=== PATIENT | male | born 1960 | race Caucasian/White ===

== ENCOUNTER 2016-09-08 16:37 | Inpatient (IN) | payer OTHER, SELFPAY ==
--- NOTE | ~2016-09-08 | DS ---
Discharge Summary [facility] [address] [place]. [address] NAME: KATE BROWN : 58 STATUS : DIS Nallely PAT#: [id number] AGE: 56 ADM/REG DATE : 09/08/16 MR#: [id number] REPORT SERV DATE: 09/16/16 DICTATED BY: SHA MONSALVE DATE: 09/15/16 REPORT STATUS : Draft TRANSCRIBED BY: MODL DATE: 09/15/16 ADMISSION DATE: 09/08/2016 DISCHARGE DATE: 09/15/2016 DISCHARGE DIAGNOSES: 1. Ulcerative colitis with flare of proctitis. 2. History of ulcerative colitis. 3. Chronic left-sided hydronephrosis without change from baseline. INVASIVE PROCEDURES DURING THIS HOSPITALIZATION: Please refer to interim summary dictated by Dr. Montero on 09/12/2016. CONSULTING PHYSICIANS: Dr. Peter Rivera of Gastroenterology. BRIEF HISTORY OF PRESENT ILLNESS: The patient is a 56-year-old male who presented to the emergency room with bright red blood per rectum, so he was admitted. For detailed history and physical exam, please see note dictated by Dr. Alexander Ugarte on 09/09/2016. HOSPITAL COURSE: After being admitted to the hospital, this patient was cared for by Dr. Dez Montero. Please refer to interim summary dictated by Dr. Montero on 09/12/2016. I took over this patient's care on 09/13/2016. This patient was doing well from a medical standpoint, but he continued to have some blood. GI had continued to follow and was placed on Rowasa enemas to treat his ulcerative colitis. This patient's H and H have remained stable, as a matter of fact, today, it is 13 and 40. He is doing well. He is tolerating a diet. He is fully ambulatory. He is not having any pain. GI has recommended that he could be discharged home with Canasa suppositories like he normally does and follow up in the outpatient setting. This was discussed with the patient, and at this time, he is being discharged in stable condition. DISCHARGE DISPOSITION: Home. DISCHARGE ACTIVITY: As tolerated. DISCHARGE DIET: GI soft. DISCHARGE MEDICATIONS: Levsin 0.125 mg 1 a.c. and h.s.; prednisone 40 mg taper; Zofran 4 mg one tablet every six hours p.r.n. for nausea; Percocet 5/325 one tablet every six hours p.r.n., #30, with no refills have been given by GI; mercaptopurine 50 mg once every morning; Canasa 1000 mg suppository at bedtime; Ativan 1 mg twice daily p.r.n. for anxiety; multivitamins one tablet daily; vitamin D 500 mg daily; and Biotin for hard nails as directed. DISCHARGE FOLLOWUP: With Dr. Peter Rivera as scheduled by GI. With Dr. Dez Sarmiento as needed. More than 30 minutes spent planning this patient's discharge, reconciling medications, Discharge Summary [address] [address] NAME: KATE BROWN : 58 STATUS : DIS Nallely PAT#: [id number] AGE: 56 ADM/REG DATE : 09/08/16 MR#: [id number] REPORT SERV DATE: 09/16/16 DICTATED BY: SHA MONSALVE DATE: 09/15/16 REPORT STATUS : Draft TRANSCRIBED BY: RULA DATE: 09/15/16 writing prescriptions, discussing hospital care, and follow up with the patient and documenting this discharge. LILA/RULA Sha Monsalve M.D. / [id number] CC: Zackery Holloway M.D. Donald Hetzel, M.D. William John Fritsch, Jr, MD
--- NOTE | ~2016-09-08 | IDS ---
Interim Discharge Summary [facility] [address] [place] [address] NAME: KATE BROWN : 58 STATUS : ADM Nallely PAT#: [id number] AGE: 55 ADM/REG DATE : 09/08/16 MR#: [id number] REPORT SERV DATE: 09/12/16 DICTATED BY: JR. MONTERO WILLIAM JOHN DATE: 09/12/16 REPORT STATUS : Draft TRANSCRIBED BY: MODStarr DATE: 09/12/16 ADMISSION DATE: 09/08/2016 DISCHARGE DATE: This summary covers the time period from 09/08 through 09/12. WORKING DIAGNOSES: 1. Ulcerative colitis flare with proctitis. 2. History of ulcerative colitis. 3. Chronic left-sided hydronephrosis without change from baseline. OPERATIONS, PROCEDURES, AND TREATMENTS: Include CT of the abdomen and pelvis done 09/09/2016, which showed wall thickening involving the mid and distal colon as well as the rectum and surrounding pericolonic/perirectal area with inflammatory stranding at these levels. This is compatible with colitis/proctitis. There was no evidence of abscess or perforation. There was no bowel obstruction. There was moderate left hydronephrosis, compatible with chronic left UPJ obstruction. CONSULTING PHYSICIANS: Include Dr. Rivera of Gastroenterology. CURRENT MEDICATIONS: Please see the daily progress note. HOSPITAL COURSE: Briefly, the patient is a 55-year-old male, who presented to the emergency room on 09/08 with bright red blood per rectum. The patient has a long history of ulcerative colitis and proctitis. He was Hemoccult positive with stable hemoglobin and hematocrit. On exam, his initial temperature was 99.2, heart rate was 95, respiratory rate 20, blood pressure 141/102. Abdominal exam was soft, nontender and bowel sounds are present. Lab was unremarkable. The patient was admitted to the hospital on 24-hour telemetry, and Gastroenterology was consulted. Bowel rest and IV fluids were instituted. The patient was seen by Dr. Rivera and was placed on IV Levaquin and Flagyl initially with mesalamine and IV steroids as well as bowel rest. Diet was slowly reintroduced, and the patient is currently tolerating a full liquid diet. He continued to have bloody diarrhea, the mesalamine was discontinued, and he was placed on Rowasa enemas. The patient will continue on this regimen with further management per Gastroenterology. The patient will be followed by Dr. Monsalve. WJF/RULA Dez Montero Jr, MD / [id number] Interim Discharge Summary [address] [address] NAME: KATE BROWN : 58 STATUS : ADM Nallely PAT#: [id number] AGE: 55 ADM/REG DATE : 09/08/16 MR#: [id number] REPORT SERV DATE: 09/12/16 DICTATED BY: JR. MONTERO WILLIAM JOHN DATE: 09/12/16 REPORT STATUS : Draft TRANSCRIBED BY: RULA DATE: 09/12/16 CC: Dez Montero Jr, MD William Cornwell, M.D.
--- NOTE | ~2016-09-08 | HP ---
History And Physical [place] [id number] [facility] [place]. [address] NAME: KATE BROWN : 58 STATUS : ADM IN PAT#: [id number] AGE: 55 ADM/REG DATE : 09/08/16 MR#: [id number] REPORT SERV DATE: 09/09/16 DICTATED BY: ALEXANDER RAMSEY DATE: 09/09/16 REPORT STATUS : Draft TRANSCRIBED BY: MODL DATE: 09/09/16 DATE OF ADMISSION: 09/08/2016 CHIEF COMPLAINT: Bright red blood per rectum. HISTORY OF PRESENT ILLNESS: This is a 55-year-old male, who presents to the emergency room at [facility] with the above-mentioned complaint. History is obtained from the patient and reviewing data available on the [employer] system. According to Mr. Brown, he first noticed some bleeding from his rectum about two weeks ago. He has a history of proctitis and is a patient of Dr. Rivera and thought it would just subside. Unfortunately, it continued to get worse. He started having about 20 bowel movements a day, which was sometimes mostly just blood. Today, he started feeling quite dizzy and called Dr. Rivera's office for some advice and was immediately asked to go to the emergency room right away. Mr. Brown reports that he had also started having pain in his lower abdomen, which comes on when he has any bump or when his car goes over a bump or something like that. At rest, the pain is not very noticeable. In the emergency room, indeed he had bright red blood per rectum, which was stool Hemoccult positive. However, his hemoglobin and hematocrit levels were stable. Hospitalist Service is asked to admit him for further evaluation and treatment. At the time of my evaluation, he denied any chest pain or palpitations. He had no orthopnea. He had no cough, hemoptysis, night sweats, or weight loss. He has not had any recent falls or loss of consciousness. No history of fevers or chills at home. He denied any nausea or vomiting. No history of hematemesis or hematuria. No other history of recent travel or exposures. PAST MEDICAL HISTORY: Significant for history of proctitis and ulcerative colitis. SOCIAL HISTORY: He does not smoke, drink, or use recreational drugs, but did admit to using marijuana occasionally. 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 FAMILY HISTORY: Noncontributory. MEDICATIONS: His medications at home were reviewed by me in the chart today and reordered by me. REVIEW OF SYSTEMS: As in history of present illness. All other systems were reviewed in detail and are quite unremarkable. PHYSICAL EXAMINATION: GENERAL: This is a pleasant 55-year-old, not in any acute distress. HEENT: His head is atraumatic, normocephalic. He is alert, awake, and oriented to time, place, and person. Pupils are equal, reacting to light and accommodating. External ocular History And Physical [address] [place]. [address] NAME: KATE BROWN : 58 STATUS : ADM IN [facility]#: [id number] AGE: 55 ADM/REG DATE : 09/08/16 MR#: [id number] REPORT SERV DATE: 09/09/16 DICTATED BY: ALEXANDER RAMSEY DATE: 09/09/16 REPORT STATUS : Draft TRANSCRIBED BY: RULA DATE: 09/09/16 muscles are intact. Membranes are moist and pink. Sclerae are nonicteric. NECK: Supple with no jugular venous distention, lymphadenopathy, or thyromegaly. LUNGS: Clear to auscultation with no wheezes, rubs, or crackles. HEART: Heart sounds were regular with no murmurs, rubs, or gallops. ABDOMEN: Soft, nontender. Bowel sounds are present. EXTREMITIES: Showed no cyanosis, clubbing, or edema. NEURO: Grossly intact. No focal sensory or motor deficits. Higher functions appeared intact. Gait was not examined. VITAL SIGNS: His vital signs today showed a temperature of 99.2, pulse was 95, respirations were 20 a minute, and blood pressure upon arrival was 141/102. Oxygen saturations upon arrival were 99% breathing 2 L of oxygen via nasal cannula. LABORATORY DATA: Reviewed on the [employer] system showed a normal CMP. Alkaline phosphatase, ALT, and AST were within normal limits. [place] [address]. Normal hemoglobin, hematocrit, and platelet count. No imaging was performed in the ER today. No EKG was performed in the ER. IMPRESSION: 1. Bright red blood per rectum. 2. Acute gastrointestinal bleed. 3. Proctitis. 4. Ulcerative colitis. PLAN: We will admit Mr. Brown to the Hospitalist Service with telemetry for a 24-hour observation period. We will keep him n.p.o.; consult Dr. Rivera, who I called and spoke with today. Dr. Rivera wanted stool studies including for clostridium difficile. We will follow serial H and H; type, cross, and transfuse if needed. Meanwhile, we will also place him on SCDs for DVT prophylaxis. I have discussed the above plans with the patient, his questions were answered, and he is agreeable to the above recommendations. Further recommendations will follow after Dr. Rivera has had a chance to see him. Hospitalist Service will be following him during his stay here. /RULA Alexander Ramsey M.D. / [id number] CC: Zackery Ffoana M.D.
--- NOTE | ~2016-09-08 | CN ---
Consultation Report [facility] [address] [place]. [address] NAME: KATE BROWN : 58 STATUS : ADM Nallely PAT#: [id number] AGE: 55 ADM/REG DATE : 09/08/16 MR#: [id number] REPORT SERV DATE: 09/09/16 DICTATED BY: KAT BLISS DATE: 09/09/16 REPORT STATUS : Draft TRANSCRIBED BY: MODL DATE: 09/09/16 GI CONSULTATION DATE OF CONSULTATION: 09/09/2016 REASON FOR CONSULTATION: Evaluation and management of abdominal pain, lower GI bleeding. HISTORY OF PRESENT ILLNESS: Mr. Brown is a 55-year-old male patient who is known to Dr. Peter Rivera in the outpatient setting, who presented on the with a chief complaint of abdominal pain, lower GI bleeding. He did call our office yesterday and discussed with the nurse, Theresa, his symptoms. She tried to offer him an office visit as well as to come in and submit stool studies; however, the patient complained to her that his abdominal pain was the worst he had ever experienced, and most likely he would come to the emergency room for further evaluation. It appears that Dr. Ugarte did speak to Dr. Rivera when the patient was in the emergency room. Decision was made to admit the patient for further evaluation. He does have a history of ulcerative colitis. His last colonoscopy with Dr. Rivera, 07/11/2016, normal terminal ilium, normal mucosa in the sigmoid, descending, ascending, and transverse colon. He had moderate proctitis in the rectum with biopsies being taken and showed mild active proctitis. His other biopsies were within normal limits. On 08/05, he came in for an office visit. He complained of passing some blood intermittently in his stools. However, he was not having the symptoms that he expressed on admission. He tells me that he has been having lower abdominal discomfort for several months now which has progressively worsened over the past three to four days. His bowel movements have been nothing, but blood. He states he is going upwards to 20 times a day. He has had some chilling, but no documented fevers. He has had nausea, but no vomiting. He states that his weight is stable and he has still been able to eat. No abdominal imaging has been obtained. He had C. diff negative. White blood cells in his stool were greater than 100 per high-power field. Giardia and Cryptosporidium were negative. His hemoglobin was 14.3 on admission; presently it is 13.7. He had an elevated white blood cell count at 11.3. He has been afebrile since admission. I have discussed with him we will start him on steroids. We will obtain a CT scan, start him on some antibiotics, and complete his stool studies. He is agreeable. PAST MEDICAL HISTORY: Positive for proctitis, ulcerative colitis, kidney stones, osteoarthritis, hernias, history of left UPJ obstruction requiring ureteral stent placement. SURGICAL HISTORY: Shoulder surgery and ureteral stent placement. FAMILY HISTORY: Noncontributory from a GI standpoint. SOCIAL HISTORY: He does not use tobacco, alcohol. He actually states he uses marijuana occasionally, but very infrequently. Currently, he is under disability. ALLERGIES: LISTED TO NOTHING. Consultation Report [address] [place]. [address] NAME: KATE BROWN : 58 STATUS : ADM Nallely PAT#: [id number] AGE: 55 ADM/REG DATE : 09/08/16 MR#: [id number] REPORT SERV DATE: 09/09/16 DICTATED BY: KAT BLISS DATE: 09/09/16 REPORT STATUS : Draft TRANSCRIBED BY: RULA DATE: 09/09/16 HOME MEDICATIONS: Biotin, Os-Costa, Ativan, mercaptopurine, Canasa suppository, multivitamin, and Zofran. REVIEW OF SYSTEMS: A 10-point review of systems has been obtained with pertinent positives being addressed in the history of present illness. PHYSICAL EXAMINATION: VITAL SIGNS: Temperature is 98.1, pulse 81, respirations 20, blood pressure 118/69. NEURO: Reveals an alert male, resting in bed with no focal deficits. GENERAL: Cooperative, no apparent distress. Awake, alert, and oriented x3. HEAD, EARS, EYES, NOSE, AND THROAT: Anicteric. Pupils are equal, round, and reactive to light and accommodation. Normocephalic and atraumatic. NECK: No JVD. No palpable nodes. LUNGS: Clear anteriorly with normal respiratory effort exhibited. Equal expansion. CARDIOVASCULAR SYSTEM: Regular rate and rhythm. ABDOMEN: Soft, nondistended, but tender to palpation to the lower abdomen without rebound or guarding. No organomegaly appreciated. He has active bowel sounds in all four quadrants. EXTREMITIES: No edema. Normal distal pulses. SKIN: Warm, dry, and intact. PERTINENT LABORATORY DATA: Sodium 140, potassium 4.3. BUN is 6. Creatinine 0.91. White count 7.9, hemoglobin 13.7, hematocrit 41.1, and platelet count 287. INR of 1.1. ASSESSMENT: 1. Abdominal pain. 2. Ulcerative colitis exacerbation/proctitis. 3. Gastrointestinal bleed secondary to #2. Hemoglobin is stable. PLAN: 1. Check sedimentation rate and CRP. 2. Initiate steroids. 3. CT scan of the abdomen and pelvis. 4. Initiate IV antibiotics. We will follow. ASHLEY/RULA [place] MARIA E Hernández / [id number] Consultation Report [address] [address] NAME: KATE BROWN : 58 STATUS : ADM Nallely PAT#: [id number] AGE: 55 ADM/REG DATE : 09/08/16 MR#: [id number] REPORT SERV DATE: 09/09/16 DICTATED BY: KAT BLISS DATE: 09/09/16 REPORT STATUS : Draft TRANSCRIBED BY: RULA DATE: 09/09/16 CC: Dez Montero Jr, MD Dez Sarmiento M.D.
[~2016-09-08 16:37] MED LIST: ACET500CAP PO; ALEVE220 MG PO; ANASPAZ0.125 MG PO; ASA5GR PO; ASACOL PO; ATV.5 PO; ATV1 PO; BIOTIN5 MG PO; CANASA1SUP PR; ENDOCET1 TA3 PO; FISH OIL1200 MG PO; FLOMAX4 PO; KLONO5 PO; LIBRAX PO; MAX25 PO; OXAPROZIN600 MG PO; PCET PO; PRAV10 PO; PROTONIX PO; PURINETHOL50 MG PO; PYR200 PO; REMERON30 MG PO; SUCR PO; TOF25 PO; ULTRAM50 PO; UROXATRAL PO; VITD PO; ZOFRAN ODT4 MG PO; ZOFRAN4 PO
[2016-09-08 16:57] LABS: BASOPHILS 0.3 %; BASOPHILS ABSOLUTE 0.03 10/3/uL (0.0-0.16); EOSINOPHILS 1.2 %; EOSINOPHILS ABSOLUTE 0.14 10/3/uL (0.0-0.53); HEMATOCRIT 42.5 % (40.0-51.0); HEMOGLOBIN 14.3 g/dL (13.6-17.8); IMMATURE GRANULOCYTES 0.3 %; IMMATURE GRANULOCYTES ABSOLUTE 0.03 10/3/uL (0.0-0.11); LYMPHOCYTES 11.1 %; LYMPHOCYTES ABSOLUTE 1.25 10/3/uL (0.67-4.30); MEAN CORPUS HGB CONC 33.6 g/dL (32.0-36.0); MEAN CORPUSCULAR HEMOGLOB 31.6 pg (26.0-34.0); MONOCYTES 4.9 %; MONOCYTES ABSOLUTE 0.55 10/3/uL (0.21-1.20); NEUTROPHILS 82.2 %; NEUTROPHILS ABSOLUTE 9.28 10/3/uL (2.02-8.40); RBC DISTRIBUTION WIDTH 14.9 % (12.0-16.0); RED CELL COUNT 4.52 10/6/uL (4.7-6.1)
[2016-09-08 16:58] LABS: MANUAL DIFF NO %; PLATELET COUNT 282 10/3/uL (150-400); WHITE BLOOD CELLS 11.3 10/3/uL (4.5-10.5)
[2016-09-08 17:03] LABS: INTERNATIONAL NORMAL RATI 1.1 UNITS (-); PARTIAL THROMBO TIME 31.4 SEC (22.5-37.2); PROTIME (NOT ORD) 13.9 SEC (12.0-14.5)
[2016-09-08 17:10] LABS: ALBUMIN 3.3 G/DL (3.5-5.0); BUN (BLOOD UREA NITROGEN) 7 MG/DL (6-23); CALCIUM, SERUM 8.8 MG/DL (8.5-10.4); CHLORIDE, SERUM 100 MMOL/L (96-112); CO2 (CARBON DIOXIDE) 32 MMOL/L (24-34); CREATININE 0.92 MG/DL (0.70-1.30); GFR AFRICAN AMERICAN 107 ML/MIN (>=60); GFR NON AFRICAN AMERICAN 93 ML/MIN (>=60); GLUCOSE, SERUM 97 MG/DL (60-99); POTASSIUM, SERUM 3.9 MMOL/L (3.5-5.3); SGOT(AST) 9 U/L (5-40); SGPT(ALT) 12 U/L (5-65); SODIUM, SERUM 138 MMOL/L (135-148); TOTAL BILIRUBIN 0.3 MG/DL (0-1.2); TOTAL PROTEIN 7.5 G/DL (6.0-8.5)
[2016-09-08 17:12] LABS: A/G RATIO 0.8 (0.7-1.9); ALKALINE PHOSPHATASE 92 U/L (45-117); GLOBULIN 4.2 G/DL (2.5-4.1)
[2016-09-08] MEDS ORDERED: MERCAPTOPUR50 MG PO (19:57)
[2016-09-08] MEDS ORDERED: CANASA1SUP PR (19:57)
[2016-09-08] MEDS ORDERED: ATV1 PO (19:58)
[2016-09-08] MEDS ORDERED: MULTI-VIT/F1 PO (19:58)
[2016-09-08] MEDS ORDERED: ZOFRAN4 PO (19:58)
[2016-09-08] MEDS ORDERED: OS500+D PO (19:58)
[2016-09-08] MEDS ORDERED: HARD NAILS PO (19:59)
[2016-09-09 04:29] LABS: BASOPHILS 0.3 %; BASOPHILS ABSOLUTE 0.02 10/3/uL (0.0-0.16); EOSINOPHILS 1.7 %; EOSINOPHILS ABSOLUTE 0.13 10/3/uL (0.0-0.53); HEMATOCRIT 41.1 % (40.0-51.0); HEMOGLOBIN 13.7 g/dL (13.6-17.8); IMMATURE GRANULOCYTES 0.6 %; IMMATURE GRANULOCYTES ABSOLUTE 0.05 10/3/uL (0.0-0.11); LYMPHOCYTES 10.2 %; MANUAL DIFF NO %; MEAN CORPUS HGB CONC 33.3 g/dL (32.0-36.0); MEAN CORPUSCULAR HEMOGLOB 31.7 pg (26.0-34.0); MEAN CORPUSCULAR VOLUME 95.1 fL (80-100); MEAN PLATELET VOLUME 9.1 fL (9.2-13.0); MONOCYTES 15.8 %; MONOCYTES ABSOLUTE 1.24 10/3/uL (0.21-1.20); NEUTROPHILS 71.4 %; NEUTROPHILS ABSOLUTE 5.61 10/3/uL (2.02-8.40); PLATELET COUNT 287 10/3/uL (150-400); RBC DISTRIBUTION WIDTH 14.7 % (12.0-16.0); RED CELL COUNT 4.32 10/6/uL (4.7-6.1); WHITE BLOOD CELLS 7.9 10/3/uL (4.5-10.5)
[2016-09-09 04:47] LABS: BUN (BLOOD UREA NITROGEN) 6 MG/DL (6-23); CALCIUM, SERUM 8.5 MG/DL (8.5-10.4); CHLORIDE, SERUM 104 MMOL/L (96-112); CO2 (CARBON DIOXIDE) 31 MMOL/L (24-34); CREATININE 0.91 MG/DL (0.70-1.30); GFR AFRICAN AMERICAN 109 ML/MIN (>=60); GFR NON AFRICAN AMERICAN 94 ML/MIN (>=60); GLUCOSE, SERUM 105 MG/DL (60-99); PHOSPHORUS, SERUM 2.8 MG/DL (2.5-4.5); POTASSIUM, SERUM 4.3 MMOL/L (3.5-5.3); SODIUM, SERUM 140 MMOL/L (135-148)
[2016-09-09 12:20] LABS: C-REACTIVE PROTEIN 84.5 MG/L (<8.0)
[2016-09-10 06:28] LABS: BASOPHILS 0.1 %; BASOPHILS ABSOLUTE 0.01 10/3/uL (0.0-0.16); EOSINOPHILS 0 %; HEMATOCRIT 39.7 % (40.0-51.0); HEMOGLOBIN 13.4 g/dL (13.6-17.8); IMMATURE GRANULOCYTES 0.6 %; IMMATURE GRANULOCYTES ABSOLUTE 0.05 10/3/uL (0.0-0.11); LYMPHOCYTES 2.4 %; LYMPHOCYTES ABSOLUTE 0.21 10/3/uL (0.67-4.30); MEAN CORPUS HGB CONC 33.8 g/dL (32.0-36.0); MEAN CORPUSCULAR HEMOGLOB 30.9 pg (26.0-34.0); MONOCYTES 0.8 %; MONOCYTES ABSOLUTE 0.07 10/3/uL (0.21-1.20); NEUTROPHILS 96.1 %; NEUTROPHILS ABSOLUTE 8.39 10/3/uL (2.02-8.40); PLATELET COUNT 288 10/3/uL (150-400); RBC DISTRIBUTION WIDTH 14.7 % (12.0-16.0); RED CELL COUNT 4.33 10/6/uL (4.7-6.1); WHITE BLOOD CELLS 8.7 10/3/uL (4.5-10.5)
[2016-09-10 06:30] LABS: MANUAL DIFF NO %; MEAN CORPUSCULAR VOLUME 91.7 fL (80-100)
[2016-09-10 06:32] LABS: INTERNATIONAL NORMAL RATI 1.2 UNITS (-); PROTIME (NOT ORD) 14.7 SEC (12.0-14.5)
[2016-09-10 06:42] LABS: CALCIUM, SERUM 8.4 MG/DL (8.5-10.4); CHLORIDE, SERUM 104 MMOL/L (96-112); CREATININE 0.73 MG/DL (0.70-1.30); GFR AFRICAN AMERICAN 120 ML/MIN (>=60); GFR NON AFRICAN AMERICAN 104 ML/MIN (>=60); POTASSIUM, SERUM 4.2 MMOL/L (3.5-5.3); SODIUM, SERUM 141 MMOL/L (135-148)
[2016-09-10 06:44] LABS: BUN (BLOOD UREA NITROGEN) 14 MG/DL (6-23); CO2 (CARBON DIOXIDE) 25 MMOL/L (24-34); GLUCOSE, SERUM 132 MG/DL (60-99)
[2016-09-11 06:23] LABS: BASOPHILS 0.1 %; BASOPHILS ABSOLUTE 0.01 10/3/uL (0.0-0.16); EOSINOPHILS 0.1 %; EOSINOPHILS ABSOLUTE 0.01 10/3/uL (0.0-0.53); HEMOGLOBIN 12.4 g/dL (13.6-17.8); IMMATURE GRANULOCYTES 0.4 %; IMMATURE GRANULOCYTES ABSOLUTE 0.04 10/3/uL (0.0-0.11); LYMPHOCYTES 6.2 %; LYMPHOCYTES ABSOLUTE 0.56 10/3/uL (0.67-4.30); MEAN CORPUS HGB CONC 33.5 g/dL (32.0-36.0); MEAN CORPUSCULAR HEMOGLOB 31.3 pg (26.0-34.0); MEAN CORPUSCULAR VOLUME 93.4 fL (80-100); MEAN PLATELET VOLUME 8.8 fL (9.2-13.0); MONOCYTES 7.2 %; MONOCYTES ABSOLUTE 0.65 10/3/uL (0.21-1.20); NEUTROPHILS ABSOLUTE 7.72 10/3/uL (2.02-8.40); PLATELET COUNT 311 10/3/uL (150-400); RBC DISTRIBUTION WIDTH 14.4 % (12.0-16.0); RED CELL COUNT 3.96 10/6/uL (4.7-6.1)
[2016-09-11 06:35] LABS: BUN (BLOOD UREA NITROGEN) 10 MG/DL (6-23); CALCIUM, SERUM 8.6 MG/DL (8.5-10.4); CHLORIDE, SERUM 107 MMOL/L (96-112); CO2 (CARBON DIOXIDE) 28 MMOL/L (24-34); CREATININE 0.69 MG/DL (0.70-1.30); GFR AFRICAN AMERICAN 123 ML/MIN (>=60); GFR NON AFRICAN AMERICAN 106 ML/MIN (>=60); GLUCOSE, SERUM 120 MG/DL (60-99); POTASSIUM, SERUM 4.3 MMOL/L (3.5-5.3); SODIUM, SERUM 142 MMOL/L (135-148)
[2016-09-11 06:38] LABS: MANUAL DIFF NO %
[2016-09-12 05:35] LABS: HEMOGLOBIN 13.1 g/dL (13.6-17.8); MEAN CORPUS HGB CONC 32.8 g/dL (32.0-36.0); MEAN CORPUSCULAR VOLUME 94.8 fL (80-100); MEAN PLATELET VOLUME 9.2 fL (9.2-13.0); PLATELET COUNT 353 10/3/uL (150-400); RBC DISTRIBUTION WIDTH 14.7 % (12.0-16.0); RED CELL COUNT 4.22 10/6/uL (4.7-6.1)
[2016-09-12 05:36] LABS: MANUAL DIFF YES %
[2016-09-12 05:52] LABS: BUN (BLOOD UREA NITROGEN) 8 MG/DL (6-23); CALCIUM, SERUM 8.7 MG/DL (8.5-10.4); CHLORIDE, SERUM 104 MMOL/L (96-112); CO2 (CARBON DIOXIDE) 28 MMOL/L (24-34); CREATININE 0.82 MG/DL (0.70-1.30); GFR AFRICAN AMERICAN 115 ML/MIN (>=60); GFR NON AFRICAN AMERICAN 99 ML/MIN (>=60); GLUCOSE, SERUM 132 MG/DL (60-99); POTASSIUM, SERUM 4.1 MMOL/L (3.5-5.3); SODIUM, SERUM 141 MMOL/L (135-148)
[2016-09-12 06:21] LABS: BAND NEUTROPHILS 3 %; LYMPHOCYTES 2 %; LYMPHOCYTES ABSOLUTE (CALC) 0.14 10/3/uL (0.67-4.30); MONOCYTES 6 %; MONOCYTES ABSOLUTE (CALC) 0.42 10/3/uL (0.21-1.20); NEUTROPHILS ABSOLUTE (CALC) 6.44 10/3/uL (2.02-8.40); PLATELET ESTIMATE ADQ (ADEQUATE); SEGMENTED NEUTROPHIL (0) 89 %; TOTAL NUCLEATED CELLS 100
[2016-09-12 06:22] LABS: RBC MORPHOLOGY NORM (NORMAL)
[2016-09-13 06:42] LABS: BASOPHILS 0.2 %; BASOPHILS ABSOLUTE 0.02 10/3/uL (0.0-0.16); EOSINOPHILS 0 %; HEMATOCRIT 37.8 % (40.0-51.0); HEMOGLOBIN 12.5 g/dL (13.6-17.8); IMMATURE GRANULOCYTES 1.2 %; IMMATURE GRANULOCYTES ABSOLUTE 0.13 10/3/uL (0.0-0.11); LYMPHOCYTES 4.6 %; LYMPHOCYTES ABSOLUTE 0.49 10/3/uL (0.67-4.30); MANUAL DIFF NO %; MEAN CORPUS HGB CONC 33.1 g/dL (32.0-36.0); MEAN CORPUSCULAR HEMOGLOB 30.8 pg (26.0-34.0); MEAN CORPUSCULAR VOLUME 93.1 fL (80-100); MEAN PLATELET VOLUME 8.7 fL (9.2-13.0); MONOCYTES 10.7 %; MONOCYTES ABSOLUTE 1.15 10/3/uL (0.21-1.20); NEUTROPHILS 83.3 %; NEUTROPHILS ABSOLUTE 8.93 10/3/uL (2.02-8.40); PLATELET COUNT 295 10/3/uL (150-400); RBC DISTRIBUTION WIDTH 14.8 % (12.0-16.0); RED CELL COUNT 4.06 10/6/uL (4.7-6.1); WHITE BLOOD CELLS 10.7 10/3/uL (4.5-10.5)
[2016-09-13 06:47] LABS: BUN (BLOOD UREA NITROGEN) 7 MG/DL (6-23); CALCIUM, SERUM 8.3 MG/DL (8.5-10.4); CHLORIDE, SERUM 107 MMOL/L (96-112); CO2 (CARBON DIOXIDE) 27 MMOL/L (24-34); CREATININE 0.74 MG/DL (0.70-1.30); GFR AFRICAN AMERICAN 119 ML/MIN (>=60); GFR NON AFRICAN AMERICAN 102 ML/MIN (>=60); GLUCOSE, SERUM 109 MG/DL (60-99); POTASSIUM, SERUM 4.2 MMOL/L (3.5-5.3); SODIUM, SERUM 142 MMOL/L (135-148)
[2016-09-14 05:22] LABS: BASOPHILS 0.2 %; BASOPHILS ABSOLUTE 0.02 10/3/uL (0.0-0.16); EOSINOPHILS 0.1 %; EOSINOPHILS ABSOLUTE 0.01 10/3/uL (0.0-0.53); HEMATOCRIT 38.4 % (40.0-51.0); HEMOGLOBIN 12.9 g/dL (13.6-17.8); IMMATURE GRANULOCYTES 1.5 %; IMMATURE GRANULOCYTES ABSOLUTE 0.17 10/3/uL (0.0-0.11); LYMPHOCYTES 10.5 %; LYMPHOCYTES ABSOLUTE 1.17 10/3/uL (0.67-4.30); MEAN CORPUS HGB CONC 33.6 g/dL (32.0-36.0); MEAN CORPUSCULAR VOLUME 92.3 fL (80-100); MEAN PLATELET VOLUME 8.6 fL (9.2-13.0); MONOCYTES ABSOLUTE 0.44 10/3/uL (0.21-1.20); NEUTROPHILS 83.7 %; NEUTROPHILS ABSOLUTE 9.29 10/3/uL (2.02-8.40); PLATELET COUNT 320 10/3/uL (150-400); RBC DISTRIBUTION WIDTH 14.7 % (12.0-16.0); RED CELL COUNT 4.16 10/6/uL (4.7-6.1); WHITE BLOOD CELLS 11.1 10/3/uL (4.5-10.5)
[2016-09-14 05:26] LABS: MANUAL DIFF NO %
[2016-09-14 05:39] LABS: ALBUMIN 2.7 G/DL (3.5-5.0); BUN (BLOOD UREA NITROGEN) 10 MG/DL (6-23); CALCIUM, SERUM 8.6 MG/DL (8.5-10.4); CHLORIDE, SERUM 105 MMOL/L (96-112); CO2 (CARBON DIOXIDE) 29 MMOL/L (24-34); CREATININE 0.79 MG/DL (0.70-1.30); GFR AFRICAN AMERICAN 116 ML/MIN (>=60); GFR NON AFRICAN AMERICAN 100 ML/MIN (>=60); GLUCOSE, SERUM 126 MG/DL (60-99); PHOSPHORUS, SERUM 2.7 MG/DL (2.5-4.5); SODIUM, SERUM 142 MMOL/L (135-148)
[2016-09-15 05:38] LABS: BASOPHILS 0.3 %; BASOPHILS ABSOLUTE 0.03 10/3/uL (0.0-0.16); EOSINOPHILS 0.1 %; EOSINOPHILS ABSOLUTE 0.01 10/3/uL (0.0-0.53); HEMATOCRIT 39.7 % (40.0-51.0); HEMOGLOBIN 13.5 g/dL (13.6-17.8); IMMATURE GRANULOCYTES 2.5 %; IMMATURE GRANULOCYTES ABSOLUTE 0.25 10/3/uL (0.0-0.11); LYMPHOCYTES 6.2 %; LYMPHOCYTES ABSOLUTE 0.62 10/3/uL (0.67-4.30); MEAN CORPUSCULAR HEMOGLOB 31.4 pg (26.0-34.0); MEAN CORPUSCULAR VOLUME 92.3 fL (80-100); MEAN PLATELET VOLUME 8.9 fL (9.2-13.0); MONOCYTES 5.5 %; MONOCYTES ABSOLUTE 0.55 10/3/uL (0.21-1.20); NEUTROPHILS 85.4 %; NEUTROPHILS ABSOLUTE 8.59 10/3/uL (2.02-8.40); PLATELET COUNT 338 10/3/uL (150-400); RBC DISTRIBUTION WIDTH 14.5 % (12.0-16.0); WHITE BLOOD CELLS 10.1 10/3/uL (4.5-10.5)
[2016-09-15 05:45] LABS: MANUAL DIFF NO %
[2016-09-15 05:53] LABS: ALBUMIN 2.7 G/DL (3.5-5.0); BUN (BLOOD UREA NITROGEN) 11 MG/DL (6-23); CALCIUM, SERUM 8.6 MG/DL (8.5-10.4); CHLORIDE, SERUM 105 MMOL/L (96-112); CO2 (CARBON DIOXIDE) 28 MMOL/L (24-34); CREATININE 0.84 MG/DL (0.70-1.30); GFR AFRICAN AMERICAN 113 ML/MIN (>=60); GFR NON AFRICAN AMERICAN 97 ML/MIN (>=60); GLUCOSE, SERUM 140 MG/DL (60-99); POTASSIUM, SERUM 4.3 MMOL/L (3.5-5.3); SODIUM, SERUM 141 MMOL/L (135-148)
[2016-09-15] MEDS ORDERED: PCET PO (13:29)
[2016-09-15] MEDS ORDERED: LEVSINTAB PO (13:30)
[2016-09-15] MEDS ORDERED: ZOFRAN4 PO (13:30)
[2016-09-15] MEDS ORDERED: P10 PO (13:30)
== END 2016-09-15 18:11 | disposition home or self-care (01) | DRG 386 ==
LOC: ER 16:37 → 4SO 22:15
PROVIDERS: Emergency Medicine; Hospitalist; Internal Medicine; Nurse Practitioner Family
DX: K51.211 Ulcerative (chronic) proctitis with rectal bleeding (principal); N13.1 Hydronephrosis with ureteral stricture, not elsewhere classified; F12.90 Cannabis use, unspecified, uncomplicated; M19.90 Unspecified osteoarthritis, unspecified site
CPT/HCPCS: 36415; 74176; 80048; 80053; 80069; 83605; 83735; 84100; 85025; 85610; 85652; 85730; 86140; 86850; 86900; 86901; 87040; 87045; 87046; 87046-59; 87328; 87329; 87493; 87493-59; 87899; 87899-59; 89055; 99285; A9270-GY; J1956; J2405; J2550; J2920

== ENCOUNTER 2016-09-19 02:35 | Inpatient (IN) | payer OTHER, SELFPAY ==
--- NOTE | ~2016-09-19 | HP ---
History And Physical [place] [address] [place]. [address] NAME: KATE BROWN : 58 STATUS : ADM Nallely PAT#: [id number] AGE: 56 ADM/REG DATE : 09/19/16 MR#: [id number] REPORT SERV DATE: 09/19/16 DICTATED BY: ALEXANDER RAMSEY DATE: 09/19/16 REPORT STATUS : Draft TRANSCRIBED BY: MODL DATE: 09/19/16 DATE OF ADMISSION: 09/19/2016 CHIEF COMPLAINT: Bright red blood per rectum. HISTORY OF PRESENT ILLNESS: This is a 56-year-old male with history of ulcerative colitis, especially proctitis, and recurrent gastrointestinal bleeding, who I had admitted on 09/08/2016 and was treated as an inpatient until 09/15/2016, who actually returns to the hospital today with the above-mentioned complaint. History is obtained from the patient and reviewing data available on the [employer] system. According to Mr. Brown, he was discharged from this facility on 09/15/2016 after he was treated as an inpatient for the same above complaints. Unfortunately upon arriving at home, he immediately started having bloody stools again. He was sent home on Canasa suppositories, but says he could not even hold it in to get any benefit from it. He called Dr. Rivera's office again today and was asked to go back to the emergency room to be evaluated. In the emergency room, he continued to have bright red blood per rectum and Hospitalist Service is asked to admit him for further evaluation and treatment. At the time of my evaluation, he denied any chest pain, palpitations, or orthopnea. He had no cough, hemoptysis, night sweats, or weight loss. He has not had any recent falls or loss of consciousness. No fevers, chills, nausea, vomiting, or diarrhea. No other history of recent travel or exposures. PAST MEDICAL HISTORY: Significant for history of ulcerative colitis with proctitis and recurrent gastrointestinal bleeding. He also has history of nephrolithiasis, osteoarthritis, and ureteropelvic junction obstruction with stent placement. SOCIAL HISTORY: He does not smoke, drink, or use recreational drugs. FAMILY HISTORY: Noncontributory. MEDICATIONS: His medications at home were reviewed by me in the chart today and reordered by me. REVIEW OF SYSTEMS: As in history of present illness. All other systems were reviewed in detail and are quite unremarkable. PHYSICAL EXAMINATION: GENERAL: This is a pleasant 56-year-old, not in any acute distress. HEENT: His head is atraumatic, normocephalic. He is alert, awake, and oriented to time, place, and person. Pupils are equal, reacting to light and accommodating. External ocular muscles are intact. Membranes are moist and pink. Sclerae are nonicteric. History And Physical [address] [address] NAME: KATE BROWN : 58 STATUS : ADM Nallely PAT#: [id number] AGE: 56 ADM/REG DATE : 09/19/16 MR#: [id number] REPORT SERV DATE: 09/19/16 DICTATED BY: ALEXANDER RAMSEY DATE: 09/19/16 REPORT STATUS : Draft TRANSCRIBED BY: RULA DATE: 09/19/16 NECK: Supple with no jugular venous distention, lymphadenopathy, or thyromegaly. LUNGS: Clear to auscultation with no wheezes, rubs, or crackles. HEART: Heart sounds were regular with no murmurs, rubs, or gallops. ABDOMEN: Soft, nontender. Bowel sounds are present. There was no rebound tenderness or guarding. EXTREMITIES: Showed no cyanosis, clubbing, or edema. NEURO: Grossly intact. No focal sensory or motor deficits. Higher functions appeared intact. He was able to move all four extremities. VITAL SIGNS: His vital signs today showed a temperature of 98 degrees Fahrenheit, pulse 63, respirations 16 a minute, blood pressure was 106/68, oxygen saturations were 100% breathing 2 L of oxygen via nasal cannula. LABORATORY DATA: Reviewed on the [employer] system showed a normal CMP with glucose of 100. [place] a [place] [address]; normal hemoglobin, hematocrit, and platelet count. CT of the abdomen was not repeated today due to the fact that he has had one on 09/09/2016. IMPRESSION: 1. Bright red blood per rectum. 2. Acute gastrointestinal bleed. 3. Proctitis secondary to ulcerative colitis with recurrent bleeding. 4. Nephrolithiasis. 5. Osteoarthritis. PLAN: We will admit Mr. Brown to the Hospitalist Service with telemetry for a 24-hour observation. We will keep him n.p.o. for now for bowel rest. 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 We will start him on IV steroids, empiric antibiotics intravenously, and mesalamine orally as well. We will also replace his fluids, check his chemistry in the morning along with electrolytes, and replace as needed. We will also follow his hemoglobin and hematocrit levels, and transfuse if necessary. They are stable at this time. He will be placed on SCDs for DVT prophylaxis while here. Further recommendations will follow after Dr. Rivera has had a chance to see him. Hospitalist Service will be following him during his stay here. /RULA Alexander Ramsey M.D. / [id number] CC: Paola Fernandes M.D. History And Physical [address] [address] NAME: KATE BROWN : 58 STATUS : ADM Nallely PAT#: [id number] AGE: 56 ADM/REG DATE : 09/19/16 MR#: [id number] REPORT SERV DATE: 09/19/16 DICTATED BY: ALEXANDER RAMSEY DATE: 09/19/16 REPORT STATUS : Draft TRANSCRIBED BY: RULA DATE: 09/19/16 Dez Sarmiento M.D.
--- NOTE | ~2016-09-19 | DS ---
Discharge Summary [facility] [address] [place]. [address] NAME: KATE BROWN : 58 STATUS : ADM IN PAT#: [id number] AGE: 56 ADM/REG DATE : 09/19/16 MR#: [id number] REPORT SERV DATE: 09/27/16 DICTATED BY: SHA MONSALVE DATE: 09/27/16 REPORT STATUS : Draft TRANSCRIBED BY: MODL DATE: 09/27/16 ADMISSION DATE: 09/19/2016 DISCHARGE DATE: 09/27/2016 DISCHARGE DIAGNOSES: 1. Acute exacerbation of ulcerative colitis. 2. Proctitis. 3. Significant abdominal pain. 4. Chronic left hydronephrosis compatible with chronic left ureteropelvic junction obstruction. CONSULTANTS DURING THIS HOSPITALIZATION: Gastroenterology. INVASIVE PROCEDURES DONE DURING THIS HOSPITALIZATION: Colonoscopy showing severe colitis distal about 35 cm from the rectum consistent with ulcerative colitis. Biopsies have been taken. Pathology is pending. BRIEF HISTORY OF PRESENT ILLNESS: The patient is a 56-year-old white male who was discharged on 09/16/2016 and returned back on 09/19/2016 with recurrent bright red blood per rectum. So, he was admitted. For detailed history and physical exam, please see note dictated by Dr. Alexander Ugarte on 09/19/2016. HOSPITAL COURSE: After being admitted to the hospital, this patient was cared for by Dr. Lundy. Please refer to interim summary dictated by Dr. Lundy on 09/22/2016. I took over this patient's care on 09/23/2016. This patient was doing fairly well. He was tolerating some diet. We tried to advance his diet that caused more abdominal pain. GI continued to follow the patient. We adjusted his medications. It was decided that he will need colonoscopy. Colonoscopy was done by Dr. Eros Jennings and after his colonoscopy he was started on Cortenema and Rowasa suppositories. He has been doing well. His bowel movements have been improved. He does not notice much blood in it at this time. He is tolerating liquid diet, and we have advanced it to full liquids. He remained stable. Otherwise, his H and H have remained stable as well. He has finished a full seven-day course of IV antibiotics, and no further antibiotics are warranted. At this time, it is appropriate to discharge the patient and let him recover in the home setting. The patient understands and agrees. DISCHARGE DISPOSITION: Home. DISCHARGE ACTIVITY: As tolerated. DISCHARGE DIET: Full liquid diet. DISCHARGE MEDICATIONS: Os-Costa 500 mg daily; Levsin 0.125 mg p.o. before meals and at bedtime; mercaptopurine 50 mg once every morning; Cortenema 100 mg per rectum once daily; Apriso 0.375 g ER 2 tablets twice daily; mesalamine 4 g rectal suppository once at bedtime; prednisone 40 mg once daily; Valium 1 mg p.o. twice daily p.r.n.; Zofran 4 mg three times Discharge Summary [place] [id number] [facility] [place]. [address] NAME: KATE BROWN : 58 STATUS : ADM IN PAT#: [id number] AGE: 56 ADM/REG DATE : 09/19/16 MR#: [id number] REPORT SERV DATE: 09/27/16 DICTATED BY: SHA MONSALVE DATE: 09/27/16 REPORT STATUS : Draft TRANSCRIBED BY: RULA DATE: 09/27/16 daily p.r.n.; multivitamins one tablet daily; biotin and oxycodone 5/325 one tablet every four hours p.r.n. DISCHARGE FOLLOWUP: With Dr. Peter Rivera as previously scheduled. More than 30 minutes spent planning this patient's discharge, reconciling medications, writing prescriptions, discussing hospital care, and followup with the patient and documenting this discharge. LILA/RULA Sha Monsalve M.D. / [id number] CC: Zackery Holloway M.D. Donald Hetzel, M.D.
--- NOTE | ~2016-09-19 | CN ---
Consultation Report [facility] [address] [place]. [address] NAME: KATE BROWN : 58 STATUS : ADM Nallely PAT#: [id number] AGE: 56 ADM/REG DATE : 09/19/16 MR#: [id number] REPORT SERV DATE: 09/19/16 DICTATED BY: KAT BLISS DATE: 09/19/16 REPORT STATUS : Draft TRANSCRIBED BY: MODL DATE: 09/19/16 GI CONSULTATION DATE OF CONSULTATION: 09/19/2016 REASON FOR CONSULTATION: Evaluation and management of ulcerative colitis, abdominal pain, and hematochezia. HISTORY OF PRESENT ILLNESS: Mr. Brown is a 56-year-old male patient, who is known to Dr. Peter Rivera in the outpatient setting, who was just recently at [facility] from 09/09/2016, discharged on 09/15/2016 for ulcerative colitis flare with proctitis. He has a history of longstanding ulcerative colitis. His last colonoscopy with Dr. Rivera was done in 07/2016. Exam showed normal terminal ileum; normal mucosa in the sigmoid, descending, ascending and transverse colon; moderate proctitis in the rectum with biopsies being taken and showing mild active proctitis. He is managed on a regimen of 6-MP. When he was discharged from [facility] on 09/15, his symptoms had improved. He was not having any abdominal pain. He was tolerating a diet. He had a CT scan while he was here on his previous admission, done on 09/09/2016. This was a noncontrasted exam. On that exam, it showed wall thickening that involved the mid and distal sigmoid colon as well as the rectum with surrounding pericolonic and perirectal inflammatory fat stranding, compatible with colitis/proctitis. No abscess or perforation was seen. The patient states that since going home, he did well on Thursday and Thursday; however, on , he had increased lower abdominal pain, increase in stooling up to 20 times per day that progressed to bright red blood per rectum. He did speak to Dr. Brewster, who was on-call last night and directed the patient to the emergency room for further evaluation. He was seen by the hospitalist, Dr. Ugarte, who admitted him for further care. The patient states this morning, he is still having some significant nausea. He has had multiple bowel movements throughout the night. He has had no fever, but he states he was very "clammy" yesterday. He has seen no melena. I have discussed with him we will continue his steroids and begin Rowasa enemas again. The patient has voiced concern for needing a repeat colonoscopy. I will discuss with Dr. Perry if he feels this would be beneficial and plan accordingly. At this moment in time, the patient does state he would not be able to tolerate bowel prep, but would consider it prior to discharge. PAST MEDICAL HISTORY: Positive for ulcerative colitis, proctitis, recurrent GI bleeding, nephrolithiasis, osteoarthritis, UPJ obstruction with stent placement in the past, chronic hydronephrosis. SOCIAL HISTORY: He does not smoke tobacco or use alcohol, but he intermittently uses marijuana. Currently, he is disabled. ALLERGIES: NOTHING. HOME MEDICATIONS: Consist of biotin, Os-Costa, Levsin, Ativan, mercaptopurine, Canasa Consultation Report [address] [place]. [address] NAME: KATE BROWN : 58 STATUS : ADM Nallely PAT#: [id number] AGE: 56 ADM/REG DATE : 09/19/16 MR#: [id number] REPORT SERV DATE: 09/19/16 DICTATED BY: KAT BLISS DATE: 09/19/16 REPORT STATUS : Draft TRANSCRIBED BY: RULA DATE: 09/19/16 suppositories, multivitamin, Zofran, Percocet, and prednisone. REVIEW OF SYSTEMS: A 10-point review of systems has been obtained with pertinent positives being addressed in the history of present illness. PERTINENT LABORATORY DATA: Sodium 141, potassium 3.7, BUN is 9, creatinine 0.76. White count 9.8, hemoglobin 12.6, hematocrit 37.3, platelet count 323. INR of 1. PHYSICAL EXAMINATION: VITAL SIGNS: Temperature is 98.0, pulse 70, respirations 18, blood pressure 124/79. NEURO: Reveals an alert male, resting in bed with no focal deficits. GENERAL: Cooperative, in no apparent distress. Awake, alert, and oriented x3. HEAD, EARS, EYES, NOSE, AND THROAT: Anicteric. Pupils equal, round, reactive to light and accommodation. Normocephalic and atraumatic. NECK: No JVD. No palpable nodes. LUNGS: Clear anteriorly with normal respiratory effort exhibited. Equal expansion. CARDIOVASCULAR SYSTEM: Regular rate and rhythm. S1 and S2. No murmurs, rubs, gallops, S3, or S4 appreciated. ABDOMEN: Soft and flat. Mild diffuse tenderness, more so on the left side than the right. No rebound or guarding elicited on exam. He has active bowel sounds. EXTREMITIES: No edema. Normal distal pulses. SKIN: Warm, dry, and intact. ASSESSMENT: 1. Ulcerative colitis flare/proctitis. 2. Hematochezia secondary to ulcerative colitis flare/proctitis. 3. Abdominal pain secondary to ulcerative colitis flare/proctitis. 4. Nausea. PLAN: 1. Clear liquid diet. 2. Rowasa enema. 3. Decrease dose of steroids as it is at 125 mg every six hours. 4. We will obtain stool studies. 5. Monitor data. We will follow. ASHLEY/RULA MARIA E Astorga Consultation Report [address] [place]. [address] NAME: KATE BROWN : 58 STATUS : ADM Nallely PAT#: [id number] AGE: 56 ADM/REG DATE : 09/19/16 MR#: [id number] REPORT SERV DATE: 09/19/16 DICTATED BY: KAT BLISS DATE: 09/19/16 REPORT STATUS : Draft TRANSCRIBED BY: RULA DATE: 09/19/16 / [id number] CC: Zackery Mendoza M.D.
--- NOTE | ~2016-09-19 | IDS ---
Interim Discharge Summary [facility] [address] [place]. [address] NAME: KATE BROWN : 58 STATUS : ADM Nallely PAT#: [id number] AGE: 56 ADM/REG DATE : 09/19/16 MR#: [id number] REPORT SERV DATE: 09/22/16 DICTATED BY: EZEQUIEL DUKE DATE: 09/22/16 REPORT STATUS : Draft TRANSCRIBED BY: MODL DATE: 09/22/16 ADMISSION DATE: 09/19/2016 DISCHARGE DATE: CURRENT HOSPITAL DIAGNOSES: 1. Ulcerative colitis. 2. Proctitis. 3. Abdominal pain. 4. Chronic left hydronephrosis compatible with chronic left ureteropelvic junction obstruction. CONSULTATIONS: GI. PROCEDURES: CT scan of the abdomen and pelvis done on 09/09/2016, showing wall thickening involving the mid and distal sigmoid colon as well as the rectum with surrounding pericolonic and perirectal inflammatory fat stranding at these levels compatible with colitis/proctitis. No evidence of abscess or perforation. No bowel obstruction demonstrated. Stable moderate left hydronephrosis compatible with chronic left UPJ obstruction. CURRENT PHYSICAL FINDINGS AND HISTORY OF PRESENT ILLNESS: Please see dictated H and P by Dr. Ugarte. In brief, the patient is a 56-year-old male, who presented with abdominal pain, recurrent significant gastrointestinal bleeding and flare of his proctitis. LABORATORY AND VITAL SIGNS: At the time of admission, blood pressure was 124/79. His blood pressure has been stable. He has been afebrile through his hospital stay with no significant tachycardia or hypoxia. BMP was unremarkable. C-reactive protein was 20.6. White count was 11.4. Hemoglobin has been averaging 12 to 13. Sedimentation rate was 25. Stool for C. diff was negative. Shigella, Giardia, and crypto have been negative. The patient was admitted for exacerbation of his inflammatory bowel disease. He was placed on electrolyte protocol. GI was consulted. He was initially held n.p.o. Serial H and H were requested. IV fluids were administered. He was started on mesalazine, Solu-Medrol IV 125 q.6 h., Levaquin, and Flagyl, as well as his usual pain and antiemetics. He was started on clear liquid diet on 09/19/2016. Stool cultures were requested. His steroids were titrated down. He was placed on Rowasa enema, and his pain medications were titrated. His diet was increased on 09/20/2016. His IV fluids were dropped to 75. His serial H and H were discontinued, as was his telemetry. He continued to have intermittent bouts of significant hematochezia. His Solu-Medrol was changed on 09/22/2016 to 60 q.12 h. He has been tolerating his diet well. His pain has been well managed. His vitals have been stable. His hemoglobin has been stable. Current disposition is to proceed with endoscopy on Thursday. TLF/MODL Interim Discharge Summary [place] [id number] [facility] [place]. [address] NAME: KATE BROWN : 58 STATUS : ADM Nallely PAT#: [id number] AGE: 56 ADM/REG DATE : 09/19/16 MR#: [id number] REPORT SERV DATE: 09/22/16 DICTATED BY: EZEQUIEL DUKE DATE: 09/22/16 REPORT STATUS : Draft TRANSCRIBED BY: MODStarr DATE: 09/22/16 Ezequiel Duke M.D. / [id number] CC: Zackery Mendoza M.D.
--- NOTE | ~2016-09-19 | EGD ---
EGD REPORT [facility] [address] [address] NAME: GERA BROWN : 58 STATUS : ADM IN PAT#: [id number] AGE: 56 ADM/REG DATE : 09/19/16 MR#: [id number] REPORT SERV DATE: 09/26/16 DICTATED BY: GHADA MENDOZA DATE: 09/26/16 REPORT STATUS : Draft TRANSCRIBED BY: [employer] DATE: 09/26/16 Endoscopy Center Patient Name: Gera Brown Date of : 1960 Attending MD: GHADA MENDOZA MD Procedure Date No Time: 09/26/2016 Procedure: Colonoscopy Indications: High risk colon cancer surveillance: Ulcerative colitis Medicines: Sedation Required Anesthesia Staff Assistance Complications: No immediate complications. Estimated blood loss: Minimal. Procedure: Pre-Anesthesia Assessment: - ASA Grade Assessment: III - A patient with severe systemic disease. After I obtained informed consent, the scope was passed under direct vision. Throughout the procedure, the patient's blood pressure, pulse, and oxygen saturations were monitored continuously. The PCF [id number] was introduced through the anus and advanced to the terminal ileum, with identification of the appendiceal orifice and IC valve. The colonoscopy was performed without difficulty. The patient tolerated the procedure well. The quality of the bowel preparation was good. The ileocecal valve, appendiceal orifice, terminal ileum and rectum were photographed. Findings: The terminal ileum appeared normal. Biopsies were taken with a cold forceps for histology. A continuous area of bleeding ulcerated mucosa with stigmata of recent bleeding was present at 35 cm proximal to the anus. Biopsies were taken with a cold forceps for histology. Biopsies were taken with a cold forceps from the ascending colon, transverse colon, sigmoid colon and rectum for evaluation of microscopic colitis. Impression: - The examined portion of the ileum was normal. Biopsied. - Mucosal ulceration. Biopsied. Recommendation: - Use Rowasa enemas 1 per rectum daily. - Use Cortenema 1 per rectum daily. - Return patient to hospital tate for ongoing care. - Await pathology results. - Return to previous diet daily. EGD REPORT [facility] [address] [place] [address] NAME: GERA BROWN : 58 STATUS : ADM IN [facility]#: [id number] AGE: 56 ADM/REG DATE : 09/19/16 MR#: [id number] REPORT SERV DATE: 09/26/16 DICTATED BY: GHADA MENDOZA. DATE: 09/26/16 REPORT STATUS : Draft TRANSCRIBED BY: [employer] DATE: 09/26/16 Procedure Code(s): --- Professional --- 80649, Colonoscopy, flexible, proximal to splenic flexure; with biopsy, single or multiple Diagnosis Code(s): --- Professional --- K51.90, Ulcerative colitis, unspecified, without complications CPT copyright 2013 [employer]. All rights reserved. The codes documented in this report are preliminary and upon baton teacher review may be revised to meet current compliance requirements. GHADA MENDOZA MD 09/26/2016 8:42 AM This report has been signed electronically. Number of Addenda: 0 Note Initiated On: 09/26/2016 7:53 AM Scope Withdrawal Time 0 hours 0 minutes 0 seconds [address] [facility] [place] [address]
[2016-09-19 02:05] LABS: BASOPHILS 0.1 %; BASOPHILS ABSOLUTE 0.01 10/3/uL (0.0-0.16); EOSINOPHILS 1.7 %; EOSINOPHILS ABSOLUTE 0.19 10/3/uL (0.0-0.53); ER CBC TAT 0 Hrs 03 Mins; HEMATOCRIT 42.6 % (40.0-51.0); HEMOGLOBIN 14.4 g/dL (13.6-17.8); IMMATURE GRANULOCYTES 1.4 %; IMMATURE GRANULOCYTES ABSOLUTE 0.16 10/3/uL (0.0-0.11); LYMPHOCYTES ABSOLUTE 0.91 10/3/uL (0.67-4.30); MEAN CORPUS HGB CONC 33.8 g/dL (32.0-36.0); MEAN CORPUSCULAR HEMOGLOB 31.6 pg (26.0-34.0); MEAN CORPUSCULAR VOLUME 93.4 fL (80-100); MEAN PLATELET VOLUME 8.7 fL (9.2-13.0); MONOCYTES ABSOLUTE 1.25 10/3/uL (0.21-1.20); NEUTROPHILS 77.8 %; NEUTROPHILS ABSOLUTE 8.89 10/3/uL (2.02-8.40); PLATELET COUNT 358 10/3/uL (150-400); RED CELL COUNT 4.56 10/6/uL (4.7-6.1); WHITE BLOOD CELLS 11.4 10/3/uL (4.5-10.5)
[2016-09-19 02:06] LABS: MANUAL DIFF NO %
[2016-09-19 02:23] LABS: A/G RATIO 0.7 (0.7-1.9); ALBUMIN 3.1 G/DL (3.5-5.0); ALKALINE PHOSPHATASE 88 U/L (45-117); BUN (BLOOD UREA NITROGEN) 11 MG/DL (6-23); CALCIUM, SERUM 8.6 MG/DL (8.5-10.4); CHLORIDE, SERUM 102 MMOL/L (96-112); CO2 (CARBON DIOXIDE) 33 MMOL/L (24-34); CREATININE 0.82 MG/DL (0.70-1.30); GFR AFRICAN AMERICAN 114 ML/MIN (>=60); GFR NON AFRICAN AMERICAN 98 ML/MIN (>=60); GLOBULIN 4.3 G/DL (2.5-4.1); GLUCOSE, SERUM 100 MG/DL (60-99); POTASSIUM, SERUM 4.2 MMOL/L (3.5-5.3); SGOT(AST) 11 U/L (5-40); SGPT(ALT) 29 U/L (5-65); SODIUM, SERUM 143 MMOL/L (135-148); TOTAL BILIRUBIN 0.3 MG/DL (0-1.2); TOTAL PROTEIN 7.4 G/DL (6.0-8.5)
[2016-09-19 02:25] LABS: PARTIAL THROMBO TIME 29.5 SEC (22.5-37.2); PROTIME (NOT ORD) 12.9 SEC (12.0-14.5)
[~2016-09-19 02:35] MED LIST changes: +HARD NAILS PO; +LEVSINTAB PO; +MERCAPTOPUR50 MG PO; +MULTI-VIT/F1 PO; +OS500+D PO; +P10 PO
[2016-09-19] MEDS ORDERED: P20 PO (03:37)
[2016-09-19 07:03] LABS: HEMOGLOBIN 12.6 g/dL (13.6-17.8); MEAN CORPUS HGB CONC 33.8 g/dL (32.0-36.0); MEAN CORPUSCULAR HEMOGLOB 31.3 pg (26.0-34.0); MEAN CORPUSCULAR VOLUME 92.8 fL (80-100); MEAN PLATELET VOLUME 8.8 fL (9.2-13.0); PLATELET COUNT 323 10/3/uL (150-400); RBC DISTRIBUTION WIDTH 15.2 % (12.0-16.0); RED CELL COUNT 4.02 10/6/uL (4.7-6.1); WHITE BLOOD CELLS 9.8 10/3/uL (4.5-10.5)
[2016-09-19 07:04] LABS: HEMATOCRIT 37.3 % (40.0-51.0); MANUAL DIFF YES %
[2016-09-19 07:13] LABS: BUN (BLOOD UREA NITROGEN) 9 MG/DL (6-23); CALCIUM, SERUM 7.8 MG/DL (8.5-10.4); CHLORIDE, SERUM 105 MMOL/L (96-112); CO2 (CARBON DIOXIDE) 33 MMOL/L (24-34); CREATININE 0.76 MG/DL (0.70-1.30); GFR AFRICAN AMERICAN 117 ML/MIN (>=60); GFR NON AFRICAN AMERICAN 101 ML/MIN (>=60); GLUCOSE, SERUM 89 MG/DL (60-99); PHOSPHORUS, SERUM 2.7 MG/DL (2.5-4.5); POTASSIUM, SERUM 3.7 MMOL/L (3.5-5.3); SODIUM, SERUM 141 MMOL/L (135-148)
[2016-09-19 07:41] LABS: BAND NEUTROPHILS 2 %; BASOPHILS 1 %; EOSINOPHILS 2 %; LYMPHOCYTES 10 %; LYMPHOCYTES ABSOLUTE (CALC) 0.98 10/3/uL (0.67-4.30); MONOCYTES 6 %; MONOCYTES ABSOLUTE (CALC) 0.59 10/3/uL (0.21-1.20); NEUTROPHILS ABSOLUTE (CALC) 7.94 10/3/uL (2.02-8.40); PLATELET ESTIMATE ADQ (ADEQUATE); RBC MORPHOLOGY NORM (NORMAL); SEGMENTED NEUTROPHIL (0) 79 %; TOTAL NUCLEATED CELLS 100
[2016-09-19 11:54] LABS: HEMATOCRIT 39.3 % (40.0-51.0); HEMOGLOBIN 13.1 g/dL (13.6-17.8)
[2016-09-19 17:50] LABS: HEMATOCRIT 37.1 % (40.0-51.0); HEMOGLOBIN 12.5 g/dL (13.6-17.8)
[2016-09-20 06:06] LABS: BUN (BLOOD UREA NITROGEN) 9 MG/DL (6-23); C-REACTIVE PROTEIN 20.6 MG/L (<8.0); CALCIUM, SERUM 8.1 MG/DL (8.5-10.4); CHLORIDE, SERUM 106 MMOL/L (96-112); CREATININE 0.77 MG/DL (0.70-1.30); DIRECT BILIRUBIN 0.1 MG/DL (0.0-0.4); GFR AFRICAN AMERICAN 117 ML/MIN (>=60); GFR NON AFRICAN AMERICAN 101 ML/MIN (>=60); INDIRECT BILIRUBIN(NOT ORDER) 0.4 MG/DL (0.1-0.9); POTASSIUM, SERUM 4.3 MMOL/L (3.5-5.3); SGOT(AST) 9 U/L (5-40); SGPT(ALT) 18 U/L (5-65); SODIUM, SERUM 139 MMOL/L (135-148); TOTAL BILIRUBIN 0.5 MG/DL (0-1.2)
[2016-09-20 06:10] LABS: ALBUMIN 2.3 G/DL (3.5-5.0); ALKALINE PHOSPHATASE 64 U/L (45-117); CO2 (CARBON DIOXIDE) 24 MMOL/L (24-34); GLUCOSE, SERUM 150 MG/DL (60-99); TOTAL PROTEIN 5.8 G/DL (6.0-8.5)
[2016-09-20 06:12] LABS: HEMATOCRIT 36.2 % (40.0-51.0); HEMOGLOBIN 12.1 g/dL (13.6-17.8); MANUAL DIFF YES %; MEAN CORPUS HGB CONC 33.4 g/dL (32.0-36.0); MEAN CORPUSCULAR HEMOGLOB 31.3 pg (26.0-34.0); MEAN CORPUSCULAR VOLUME 93.5 fL (80-100); MEAN PLATELET VOLUME 9.1 fL (9.2-13.0); PLATELET COUNT 316 10/3/uL (150-400); RED CELL COUNT 3.87 10/6/uL (4.7-6.1)
[2016-09-20 06:37] LABS: BAND NEUTROPHILS 7 %; EOSINOPHILS 1 %; EOSINOPHILS ABSOLUTE (CALC) 0.12 10/3/uL (0.0-0.53); IMMATURE GRANS ABSOLUTE (CALC) 0.12 10/3/uL (0.0-0.11); LYMPHOCYTES 3 %; LYMPHOCYTES ABSOLUTE (CALC) 0.36 10/3/uL (0.67-4.30); METAMYELOCYTES 1 %; MONOCYTES 6 %; MONOCYTES ABSOLUTE (CALC) 0.72 10/3/uL (0.21-1.20); NEUTROPHILS ABSOLUTE (CALC) 10.68 10/3/uL (2.02-8.40); SEGMENTED NEUTROPHIL (0) 82 %; TOTAL NUCLEATED CELLS 100
[2016-09-20 06:38] LABS: HELMET CELLS OCC (0-2/OIF); PLATELET ESTIMATE ADQ (ADEQUATE); TARGET CELLS OCC (1-2/OIF) (0-1/OIF); TOXIC GRANULATION SLT; VACUOLATED NEUTROPHILES OCC
[2016-09-20 08:16] LABS: SED RATE 25 MM/HR (0-15)
[2016-09-21 13:50] LABS: HEMATOCRIT 41.2 % (40.0-51.0); HEMOGLOBIN 13.7 g/dL (13.6-17.8)
[2016-09-23 04:28] LABS: HEMOGLOBIN 12.1 g/dL (13.6-17.8); MEAN CORPUS HGB CONC 33.6 g/dL (32.0-36.0); MEAN CORPUSCULAR VOLUME 92.3 fL (80-100); MEAN PLATELET VOLUME 8.9 fL (9.2-13.0); PLATELET COUNT 313 10/3/uL (150-400)
[2016-09-23 04:29] LABS: MANUAL DIFF YES %
[2016-09-23 04:35] LABS: INTERNATIONAL NORMAL RATI 1.2 UNITS (-); PROTIME (NOT ORD) 14.9 SEC (12.0-14.5)
[2016-09-23 04:41] LABS: BUN (BLOOD UREA NITROGEN) 8 MG/DL (6-23); CALCIUM, SERUM 8.5 MG/DL (8.5-10.4); CHLORIDE, SERUM 105 MMOL/L (96-112); CREATININE 0.75 MG/DL (0.70-1.30); GFR AFRICAN AMERICAN 118 ML/MIN (>=60); GFR NON AFRICAN AMERICAN 102 ML/MIN (>=60); POTASSIUM, SERUM 4.1 MMOL/L (3.5-5.3); SODIUM, SERUM 139 MMOL/L (135-148)
[2016-09-23 04:42] LABS: CO2 (CARBON DIOXIDE) 30 MMOL/L (24-34); GLUCOSE, SERUM 110 MG/DL (60-99)
[2016-09-23 05:06] LABS: BAND NEUTROPHILS 8 %; IMMATURE GRANS ABSOLUTE (CALC) 0.12 10/3/uL (0.0-0.11); LYMPHOCYTES 3 %; LYMPHOCYTES ABSOLUTE (CALC) 0.36 10/3/uL (0.67-4.30); METAMYELOCYTES 1 %; MONOCYTES 4 %; MONOCYTES ABSOLUTE (CALC) 0.48 10/3/uL (0.21-1.20); NEUTROPHILS ABSOLUTE (CALC) 11.04 10/3/uL (2.02-8.40); PLATELET ESTIMATE ADQ (ADEQUATE); RBC MORPHOLOGY NORM (NORMAL); SEGMENTED NEUTROPHIL (0) 84 %; TOTAL NUCLEATED CELLS 100
[2016-09-25 10:18] LABS: BASOPHILS 0.1 %; BASOPHILS ABSOLUTE 0.01 10/3/uL (0.0-0.16); EOSINOPHILS 1.2 %; HEMATOCRIT 39.5 % (40.0-51.0); HEMOGLOBIN 13.2 g/dL (13.6-17.8); IMMATURE GRANULOCYTES ABSOLUTE 0.08 10/3/uL (0.0-0.11); LYMPHOCYTES 6.3 %; LYMPHOCYTES ABSOLUTE 0.52 10/3/uL (0.67-4.30); MANUAL DIFF NO %; MEAN CORPUS HGB CONC 33.4 g/dL (32.0-36.0); MEAN CORPUSCULAR HEMOGLOB 31.2 pg (26.0-34.0); MEAN CORPUSCULAR VOLUME 93.4 fL (80-100); MEAN PLATELET VOLUME 8.7 fL (9.2-13.0); MONOCYTES 13.3 %; NEUTROPHILS 78.1 %; NEUTROPHILS ABSOLUTE 6.45 10/3/uL (2.02-8.40); PLATELET COUNT 300 10/3/uL (150-400); RBC DISTRIBUTION WIDTH 15.4 % (12.0-16.0); RED CELL COUNT 4.23 10/6/uL (4.7-6.1); WHITE BLOOD CELLS 8.3 10/3/uL (4.5-10.5)
[2016-09-25 10:30] LABS: BUN (BLOOD UREA NITROGEN) 7 MG/DL (6-23); CALCIUM, SERUM 8.2 MG/DL (8.5-10.4); CHLORIDE, SERUM 101 MMOL/L (96-112); CO2 (CARBON DIOXIDE) 32 MMOL/L (24-34); CREATININE 0.86 MG/DL (0.70-1.30); GFR AFRICAN AMERICAN 112 ML/MIN (>=60); GFR NON AFRICAN AMERICAN 96 ML/MIN (>=60); GLUCOSE, SERUM 102 MG/DL (60-99); POTASSIUM, SERUM 3.4 MMOL/L (3.5-5.3); SODIUM, SERUM 138 MMOL/L (135-148)
[2016-09-26 06:55] LABS: BASOPHILS 0.2 %; BASOPHILS ABSOLUTE 0.01 10/3/uL (0.0-0.16); EOSINOPHILS 2.9 %; EOSINOPHILS ABSOLUTE 0.18 10/3/uL (0.0-0.53); HEMATOCRIT 37.1 % (40.0-51.0); HEMOGLOBIN 12.5 g/dL (13.6-17.8); IMMATURE GRANULOCYTES 0.6 %; IMMATURE GRANULOCYTES ABSOLUTE 0.04 10/3/uL (0.0-0.11); LYMPHOCYTES 17.2 %; LYMPHOCYTES ABSOLUTE 1.06 10/3/uL (0.67-4.30); MEAN CORPUS HGB CONC 33.7 g/dL (32.0-36.0); MEAN CORPUSCULAR HEMOGLOB 31.3 pg (26.0-34.0); MEAN CORPUSCULAR VOLUME 92.8 fL (80-100); MEAN PLATELET VOLUME 8.9 fL (9.2-13.0); MONOCYTES 13.6 %; MONOCYTES ABSOLUTE 0.84 10/3/uL (0.21-1.20); NEUTROPHILS 65.5 %; NEUTROPHILS ABSOLUTE 4.03 10/3/uL (2.02-8.40); PLATELET COUNT 292 10/3/uL (150-400); RBC DISTRIBUTION WIDTH 15.4 % (12.0-16.0); WHITE BLOOD CELLS 6.2 10/3/uL (4.5-10.5)
[2016-09-26 07:01] LABS: MANUAL DIFF NO %
[2016-09-26 07:10] LABS: BUN (BLOOD UREA NITROGEN) 4 MG/DL (6-23); CALCIUM, SERUM 7.9 MG/DL (8.5-10.4); CHLORIDE, SERUM 100 MMOL/L (96-112); CO2 (CARBON DIOXIDE) 32 MMOL/L (24-34); GFR AFRICAN AMERICAN 115 ML/MIN (>=60); GFR NON AFRICAN AMERICAN 99 ML/MIN (>=60); SODIUM, SERUM 138 MMOL/L (135-148)
[2016-09-26 07:12] LABS: GLUCOSE, SERUM 74 MG/DL (60-99); INTERNATIONAL NORMAL RATI 1.2 UNITS (-); POTASSIUM, SERUM 2.9 MMOL/L (3.5-5.3); PROTIME (NOT ORD) 14.8 SEC (12.0-14.5)
[2016-09-27] MEDS ORDERED: PENTASA PO (10:35)
[2016-09-27] MEDS ORDERED: P10 PO (10:36)
[2016-09-27] MEDS ORDERED: ATV1 PO (10:37)
[2016-09-27] MEDS ORDERED: CORTENEMA PR (11:07)
[2016-09-27] MEDS ORDERED: APRISO PO (11:10)
== END 2016-09-27 15:17 | disposition home or self-care (01) | DRG 386 ==
LOC: ER 02:35 → 4SO 04:03
PROVIDERS: Internal Medicine; Internal Medicine Gastroenterology; Internal Medicine Pulmonary Disease; Nurse Practitioner Family; Specialist
PROC: 0DBP8ZX Excision of Rectum, Via Natural or Artificial Opening Endoscopic, Diagnostic (ICD-10-PCS; 2016-09-26)
PROC: 0DBK8ZX Excision of Ascending Colon, Via Natural or Artificial Opening Endoscopic, Diagnostic (ICD-10-PCS; 2016-09-26)
PROC: 0DBN8ZX Excision of Sigmoid Colon, Via Natural or Artificial Opening Endoscopic, Diagnostic (ICD-10-PCS; 2016-09-26)
PROC: 0DBL8ZX Excision of Transverse Colon, Via Natural or Artificial Opening Endoscopic, Diagnostic (ICD-10-PCS; principal; 2016-09-26 07:30)
DX: K51.90 Ulcerative colitis, unspecified, without complications (principal); N13.1 Hydronephrosis with ureteral stricture, not elsewhere classified; K62.89 Other specified diseases of anus and rectum; F12.929 Cannabis use, unspecified with intoxication, unspecified; K21.9 Gastro-esophageal reflux disease without esophagitis
CPT/HCPCS: 36415; 80048; 80053; 80076; 83735; 84100; 84132; 85014; 85018; 85025; 85610; 85652; 85730; 86140; 86850; 86900; 86901; 87045; 87046; 87046-59; 87252; 87328; 87329; 87493; 87493-59; 87899; 87899-59; 88305; 89055; 93005; 99284; A9270-GY; J1170; J1956; J2405; J2550; J2920; J2930